=== PATIENT | male | born 1970 | race Hispanic/Latino ===

== ENCOUNTER 2021-08-01 16:41 | Emergency (ER) | payer OTHER, SELFPAY ==
[2021-08-01] MEDS ORDERED: CEFAZOLIN 1 GM VIAL ONE ×2 (22:00→22:01)
[2021-08-01] MEDS ORDERED: Boostrix 0.5 ML (Tdap) VIAL ONE (22:00)
[2021-08-01] MEDS ORDERED: Sterile Water 10 ML ONE (22:05)
[2021-08-01] MEDS ORDERED: Bacitracin 1 PK ONE (23:05)
== END 2021-08-01 22:38 | disposition home or self-care (01) ==
LOC: ERS 16:41
DX: S62.635B Displaced fracture of distal phalanx of left ring finger, initial encounter for open fracture (principal); F17.210 Nicotine dependence, cigarettes, uncomplicated; Z87.19 Personal history of other diseases of the digestive system; W22.8XXA Striking against or struck by other objects, initial encounter
CPT/HCPCS: 90471; 90715; 96372; J0690

== ENCOUNTER 2021-08-02 14:26 | Emergency (ER) | payer OTHER, SELFPAY | END 2021-08-02 15:11 | disposition home or self-care (01) | LOC: ERS 14:26 | DX: S62.605B Fracture of unspecified phalanx of left ring finger, initial encounter for open fracture (principal); F17.210 Nicotine dependence, cigarettes, uncomplicated; Z79.899 Other long term (current) drug therapy; W49.9XXA Exposure to other inanimate mechanical forces, initial encounter | CPT/HCPCS: 99283 ==

== ENCOUNTER 2021-08-03 15:12 | Day surgery (SDC) | payer OTHER, SELFPAY ==
[2021-08-03 16:44] LABS: SARS-CoV-2 NAA Rapid Test Not Detected (NotDetected)
[2021-08-03] MEDS ORDERED: Bupivacaine 0.25% HCL 30 ML VIAL ONE (17:32)
[2021-08-03] MEDS ORDERED: Mineral Oil Sterile 10 ML VIAL ONE (17:32)
[2021-08-03] MEDS ORDERED: Bacitracin Zinc Ointment 30 gm TUBE ONE (17:33)
[2021-08-03] MEDS ORDERED: Thrombin 5000 UNITS/5 ML VIAL ONE (17:33)
[2021-08-03] MEDS ORDERED: Fentanyl 100 MCG/2 ML VIAL ONE (17:52)
[2021-08-03] MEDS ORDERED: ceFAZolin 2 GM/DEX 5% 100 ML BAG ONE (18:13)
[2021-08-03] MEDS ORDERED: PROPOFOL 200 MG/20 ML VIAL ONE (18:31)
[2021-08-03] MEDS ORDERED: Ondansetron PF 4 MG/2 ML Vial ONE (18:31)
[2021-08-03] MEDS ORDERED: Succinylcholine 200 MG/10 ml SYRINGE FS ONE (18:31)
[2021-08-03] MEDS ORDERED: Ketorolac Tromethamine 30 MG/ML VIAL ONE (18:31)
[2021-08-03] MEDS ORDERED: Lidocaine 1% PF 5 ML VIAL ONE (18:31)
[2021-08-03] MEDS ORDERED: Dexamethasone 20 MG/5 ML VIAL ONE (18:31)
[2021-08-03] MEDS ORDERED: HYDROcodone/Acetaminophen 5/325 mg Tablet ONE (21:08)
== END 2021-08-03 21:30 | disposition home or self-care (01) ==
LOC: SDC 15:12
PROVIDERS: ATTEND Orthopaedic Surgery Hand Surgery
PROC: 0HQQXZZ Repair Finger Nail, External Approach (ICD-10-PCS; principal; 2021-08-03)
PROC: 0PSV04Z Reposition Left Finger Phalanx with Internal Fixation Device, Open Approach (ICD-10-PCS; principal; 2021-08-03)
DX: S62.635B Displaced fracture of distal phalanx of left ring finger, initial encounter for open fracture (principal); F17.200 Nicotine dependence, unspecified, uncomplicated; Z20.822 Contact with and (suspected) exposure to COVID-19; W27.8XXA Contact with other nonpowered hand tool, initial encounter
CPT/HCPCS: 76000; J1100; J1885; J2405; J2704; J3010; S0020; U0002